=== PATIENT | male | born 1935 | race Caucasian/White ===

== ENCOUNTER 2017-03-03 08:56 | Emergency (ER) | payer MEDICARE ==
[2017-03-03 09:39] LABS: BASOPHILS 0.2 % (0-2); HEMATOCRIT 42.6 % (42.0-54.0); HEMOGLOBIN 12.9 g/dL (13.5-17.5); IMMATURE GRANULOCYTES 0.3 % (0-5); LYMPHOCYTES 14.1 % (15-50); MCH 21.7 pg (26.0-34.0); MCHC 30.3 g/dL (31.0-37.0); MCV 71.7 fL (80.0-100.0); MEAN PLATELET VOLUME 9.7 fL (7.4-10.4); MONOCYTES 7.2 % (2-11); NEUTROPHILS 77.2 % (40-80); PLATELET COUNT 109 10x3/uL (130-400); RBC 5.94 10x6/uL (4.20-6.10); RDW 16.8 % (11.5-14.5); WBC 9.9 10x3/uL (4.8-10.8)
[2017-03-03 09:56] LABS: ALBUMIN 3.5 g/dL (3.4-5.0); ALKALINE PHOSPHATASE 74 U/L (46-116); ALT (SGPT) 27 U/L (10-68); CALC OSMOLALITY 284 mosm/kg (275-300); CALCIUM 8.4 mg/dL (8.5-10.1); CHLORIDE - SERUM 102 mmol/L (98-107); GLUCOSE 176 mg/dL (74-106); PROTEIN - SERUM 7.5 g/dL (6.4-8.2); SODIUM 136 mmol/L (136-145); UREA NITROGEN 38 mg/dL (7-18); eGFR NON AFRICAN AMERICAN 20 mL/min (90-120)
[2017-03-03 10:06] LABS: CREATINE KINASE 335 UL (21-232); PRO BNP 10921 pg/mL (0-450)
[2017-03-03 10:45] LABS: CKMB 8.1 U/L (0.0-3.6)
[2017-03-03] MEDS ORDERED: NORVASC5 MG PO (13:07)
[2017-03-03] MEDS ORDERED: AZILECT1 MG PO (13:08)
[2017-03-03] MEDS ORDERED: FOLIC ACID1 MG PO (13:08)
[2017-03-03] MEDS ORDERED: NEURONTIN 300300 MG PO (13:08)
[2017-03-03] MEDS ORDERED: MYSOLINE 50 MG50 MG PO (13:09)
[2017-03-03] MEDS ORDERED: OMEPRAZOLE40 MG PO (13:09)
[2017-03-03] MEDS ORDERED: COUMADIN1 MG PO ×2 (13:10→13:11)
[2017-03-03] MEDS ORDERED: ZENPEP DR 3,001 EACH PO (13:10)
[2017-03-03] MEDS ORDERED: POTASSIUM99 M1 PO (13:11)
[2017-03-03] MEDS ORDERED: VITAMIN B650 MG PO (13:12)
[2017-03-03] MEDS ORDERED: PREDNISONE10 MG PO (13:13)
[2017-03-03] MEDS ORDERED: HUMALOG 30100 UNITS/ SC (13:13)
[2017-03-03] MEDS ORDERED: LANTUS INSULIN10 ML SC (13:14)
[2017-03-04 12:54] VITALS: BMI 29.0
== END 2017-03-03 11:37 | disposition other institution (70) ==
LOC: EDBD 08:56 → D.ER 08:56
PROVIDERS: Emergency Medicine
DX: J18.9 Pneumonia, unspecified organism (principal); I10 Essential (primary) hypertension; I50.9 Heart failure, unspecified; G20 Parkinson's disease; E11.9 Type 2 diabetes mellitus without complications; Z79.01 Long term (current) use of anticoagulants

== ENCOUNTER 2017-03-03 11:37 | Inpatient (IN) | payer MEDICARE ==
[~2017-03-03] VITALS: Ht 167.6 cm; Wt 76.5 kg
--- NOTE | ~2017-03-03 | CN ---
PATIENT NAME:BRAD LY MEDICAL RECORD: [id number] : 35 LOCATION:[id number] ADMIT DATE: 03/03/17 ACCOUNT: [id number] CONSULTING PHYSICIAN: THANIA SANON MD REFERRING PHYSICIAN: SUZANNE CHAPPELL DO DATE OF CONSULTATION: 03/05/2017 CONSULT REQUESTING PHYSICIAN: Suzanne Chappell DO REASON FOR CONSULTATION: Acute hypoxic respiratory failure, bilateral pneumonia, pulmonary edema, congestive heart failure, acute renal failure. HISTORY OF PRESENT ILLNESS: Mr. Ly is an 82-year-old gentleman who is visiting from [place]. The current patient who was not feeling well starting from home, but on arrival, the patient got worse, he has shortness of breath, he was coughing, he was wheezing. He also has some low-grade fever. On evaluation in the ER, the patient found out to be pneumonia as well as he was in [id number]-[id number]-lvlrnnq renal failure. Now, the patient denies any chest pain, but he is very dyspneic. He is on an oxymizer nasal cannula. REVIEW OF SYSTEMS: CONSTITUTIONAL: He has some low-grade fever. HEENT: Sinus congestion. RESPIRATORY: As in history of present illness. CARDIOVASCULAR: He has no chest pain. GASTROINTESTINAL: Negative. GENITOURINARY: Negative. Other review of the systems is negative. PAST MEDICAL HISTORY: 1. Congestive heart failure. 2. History of pancreatitis. 3. History of pulmonary embolism. 4. Diabetes mellitus type 2. 5. Neuropathy. 6. Chronic kidney disease. 7. Hypertension. 8. History of lymphoma of the liver 2 years ago. PAST SURGICAL HISTORY: Nonsignificant. ALLERGIES: There are no known drug allergies. PRESENT MEDICATIONS: On [employer] was reviewed. PERSONAL AND SOCIAL HISTORY: The patient is an ex-smoker. He is a nondrinker. FAMILY HISTORY: Noncontributory. PHYSICAL EXAMINATION: GENERAL: Now, the patient is lying comfortably in bed. He is not in respiratory distress. VITAL SIGNS: The blood pressure is 145/75, pulse is 95, respirations 17, temperature 98.1, SpO2 is 98% on 6 liters oxymizer. HEENT: Conjunctivae are pink. Sclerae are nonicteric. CONSULT REPORT [id number] BRAD LY NECK: Supple. There is elevated JVD. CHEST: Bilateral crackles, wheeze on forceful expiration. HEART: Rhythm regular, normal sound, no murmur. ABDOMEN: Soft, bowel sounds present. No hepatosplenomegaly. RECTAL: Deferred. EXTREMITIES: No cyanosis, no clubbing. There is 1+ pedal edema. SKIN: Warm with normal turgor. CENTRAL NERVOUS SYSTEM: The patient is awake and alert. There are no obvious cranial nerve abnormality. The gait was not tested. LABORATORY DATA: CBC on admission, the WBC was 13.3 and now down to 7.9, hemoglobin 10.2, hematocrit 33.1, the platelet count is 87. Chemistry: Sodium is 131, potassium is 4.3, BUN is 55, creatinine 3.7, glucose 319. Liver enzymes within normal range. The proBNP is 16,928. Troponin is 1.66. CK-MB is 12.4. ABG: The pH is 7.38, pCO2 of 36.7, the pO2 is 78, bicarbonate of 21.7. The lactic acid is 2.07. IMPRESSION: 1. Acute hypoxic respiratory failure which is multifactorial. A. Bilateral pneumonia. B. Pulmonary edema. C. Underlying chronic obstructive pulmonary disease, ex-smoker. 2. Acute myocardial infarction. 3. Pulmonary edema. 4. Mild metabolic acidosis with possible secondary to a poor perfusion and sepsis. 5. Congestive heart failure with elevated BNP, possible systolic dysfunction. 6. Gnkth-ms-pnrjvkj kidney disease. 7. Diabetes mellitus type 2. 8. History of pulmonary embolism. RECOMMENDATION: 1. Continue the Coumadin. 2. Discontinue the Zithromax, start him on Levaquin. Continue Rocephin to cover for more Gram-negative rods and atypicals. 3. Xopenex and ipratropium nebulizer. 4. Start him on diuresis. We will follow up a renal function. Discussed with Dr. Chappell. Discussed with Dr. Mejia. The critical care time is 45 minutes. TRANSINT:[id number] Voice Confirmation ID: [id number] DOCUMENT ID: [id number] THANIA SANON MD CC: SUZANNE CHAPPELL DO [id number] DICTATION DATE: 03/05/17 1308 RESIDENT CARE ASSISTANT: 03/05/[id number] ADM IN [place] [id number] [place] [address]
--- NOTE | 2017-03-03 13:04 | NUR ---
PT TO ROOM FROM ER ALERT AND ORIENTED FAMILY AT BEDSIDE WILL ADMIT
[2017-03-03] MEDS ORDERED: NORVASC5 MG PO (13:07)
[2017-03-03] MEDS ORDERED: NEURONTIN 300300 MG PO (13:08)
[2017-03-03] MEDS ORDERED: AZILECT1 MG PO (13:08)
[2017-03-03] MEDS ORDERED: FOLIC ACID1 MG PO (13:08)
[2017-03-03] MEDS ORDERED: OMEPRAZOLE40 MG PO (13:09)
[2017-03-03] MEDS ORDERED: MYSOLINE 50 MG50 MG PO (13:09)
[2017-03-03] MEDS ORDERED: COUMADIN1 MG PO ×2 (13:10→13:11)
[2017-03-03] MEDS ORDERED: ZENPEP DR 3,001 EACH PO (13:10)
[2017-03-03] MEDS ORDERED: POTASSIUM99 M1 PO (13:11)
[2017-03-03] MEDS ORDERED: VITAMIN B650 MG PO (13:12)
[2017-03-03] MEDS ORDERED: PREDNISONE10 MG PO (13:13)
[2017-03-03] MEDS ORDERED: HUMALOG 30100 UNITS/ SC (13:13)
[2017-03-03] MEDS ORDERED: LANTUS INSULIN10 ML SC (13:14)
[2017-03-03 13:15] VITALS: BP 126/64; BMI 29.0
--- NOTE | 2017-03-03 13:36 | NUR ---
PT AZITHROMYCIN IS INFUSING TO LEFT FA NO PROBLEMS. ADMISSION IS COMPLETE. ORDERED PT A DIABETIC LUNCH TRAY PT IS EATING NOW. FSBS IS 176. PT AND FAMILY MEMBER AT BEDSIDE. WILL CONT TO MONITOR
[2017-03-03 15:43] VITALS: BP 137/75
--- NOTE | 2017-03-03 18:04 | NUR ---
ORDER WAS PLACED FOR TELE. NO AVAILABLE BEDS ON TELE BOARD AT THE MOMENT PER WASTEWATER DESIGN ENGINEER.
--- NOTE | 2017-03-03 18:41 | NUR ---
PT PIV INFILTRATED. DC WITH CATH TIP INTACT. RESITED TO LEFT UPPER FA 20G X3 STICKS. SIGNED AND DATED DSNG. IV ABX INFUSING NO PROBLEMS.
[2017-03-03 18:42] LABS: BASOPHILS 0.1 % (0-2); EOSINOPHILS 0 % (0-7); HEMATOCRIT 35.9 % (42.0-54.0); HEMOGLOBIN 11.1 g/dL (13.5-17.5); IMMATURE GRANULOCYTES 0.3 % (0-5); LYMPHOCYTES 5.3 % (15-50); MCH 22.1 pg (26.0-34.0); MCHC 30.9 g/dL (31.0-37.0); MCV 71.5 fL (80.0-100.0); MEAN PLATELET VOLUME 9.9 fL (7.4-10.4); MONOCYTES 2.3 % (2-11); RBC 5.02 10x6/uL (4.20-6.10); RDW 16.7 % (11.5-14.5)
[2017-03-03 18:43] LABS: PLATELET COUNT 86 10x3/uL (130-400); WBC 13.3 10x3/uL (4.8-10.8)
[2017-03-03 19:23] LABS: ANION GAP 14.3 mmol/L (8-16); BILIRUBIN - TOTAL 0.43 mg/dL (0.2-1.3); CALCIUM 7.7 mg/dL (8.5-10.1); CARBON DIOXIDE 23.2 mmol/L (21.0-32.0); CREATININE - SERUM 3.4 mg/dL (0.6-1.3); POTASSIUM - SERUM 4.5 mmol/L (3.5-5.1)
[2017-03-03 19:26] LABS: INR 2.52 (0.85-1.17); PROTIME 27.3 SECONDS (11.6-15.0)
[2017-03-03 20:00] VITALS: BP 125/53
--- NOTE | 2017-03-03 21:08 | NUR ---
PT LYING IN BED, EYES CLOSED, RESPIRATIONS EVEN AND UNLABORED. PT EASILY ROUSABLE TO VERBAL STIMULI. DENIES ANY NEEDS. CONTINUE TO MONITOR CLOSELY. BED LOW, CALL LIGHT IN REACH, SIDE RAILS X 2, HOB 15 DEGREES.
--- NOTE | 2017-03-03 21:27 | NUR ---
I GAVE PT A VANILLA ICE CREAM FOR HS SNACK R/T HIS INSULIN ADMINISTRATION AND BLOOD GLUCOSE.
[2017-03-03 21:33] LABS: PLATELET ESTIMATE DECREASED
[2017-03-04 00:59] VITALS: BP 103/48
[2017-03-04 04:16] VITALS: BP 98/51
[2017-03-04 05:17] LABS: BASOPHILS 0 % (0-2); EOSINOPHILS 0 % (0-7); HEMATOCRIT 34.1 % (42.0-54.0); HEMOGLOBIN 10.7 g/dL (13.5-17.5); IMMATURE GRANULOCYTES 0.2 % (0-5); LYMPHOCYTES 5.7 % (15-50); MCH 22.2 pg (26.0-34.0); MCHC 31.4 g/dL (31.0-37.0); MCV 70.7 fL (80.0-100.0); MONOCYTES 3.7 % (2-11); NEUTROPHILS 90.4 % (40-80); PLATELET COUNT 89 10x3/uL (130-400); RBC 4.82 10x6/uL (4.20-6.10); RDW 16.7 % (11.5-14.5); WBC 10.5 10x3/uL (4.8-10.8)
[2017-03-04 05:36] LABS: INR 3.56 (0.85-1.17)
[2017-03-04 05:56] LABS: ALBUMIN 2.7 g/dL (3.4-5.0); ANION GAP 11.5 mmol/L (8-16); BILIRUBIN - TOTAL 0.31 mg/dL (0.2-1.3); CALCIUM 7.9 mg/dL (8.5-10.1); CARBON DIOXIDE 25.8 mmol/L (21.0-32.0); CREATININE - SERUM 3.7 mg/dL (0.6-1.3); MAGNESIUM - SERUM 1.8 mg/dL (1.8-2.4); PHOSPHOROUS 3.7 mg/dL (2.5-4.9); POTASSIUM - SERUM 4.3 mmol/L (3.5-5.1); PROTEIN - SERUM 6.2 g/dL (6.4-8.2)
--- NOTE | 2017-03-04 06:18 | NUR ---
PT LYING IN BED, EYES CLOSED RESPIRATIONS EVEN AND UNLABORED. PT EASILY ROUSABLE TO VERBAL STIMULI, DENIES ANY NEEDS. CONTINUE TO MONITOR CLOSELY. BED LOW, CALL LIGHT IN REACH, SIDE RAILS X 1, HOB 30 DEGREES.
--- NOTE | 2017-03-04 07:28 | NUR ---
AM ROUNDING- RECEIVED REPORT FROM HEAVY EQUIPMENT TECHNICIAN NURSE HARI MCCLURE. PTIS CURRENTLY SITTING UP IN BED ON BACK WITH EYES OPEN RESTING. ON MONITOR SHOWING SR, HR 84. ON 02 AT 3L VIA NC. IV SEEN TO LEFT UPPER ARM WITH NS RUNNING AT KVO (10CC). NO NEED AT CURRENT TIME. WILL CONTINUE TO MONITOR AND CONTINUE WITH PLAN OF CARE.
[2017-03-04 07:53] VITALS: BP 116/51
--- NOTE | 2017-03-04 07:54 | NUR ---
CALLED PHARMACY REGARDING PTS ORDERED POTASSIUM GLUCONATE TABLET BEING 99MG AND COMING IN 500MG FORM. MADI FROM PHARMACY STATES ITS AN EQUAL DOSE AND IS ACCURATE. WILL CONTINUE TO MONITOR.
--- NOTE | 2017-03-04 08:47 | NUR ---
IV FLUIDS STARTED AT 100CC ORDERED.
--- NOTE | 2017-03-04 09:31 | NUR ---
IV FLUIDS CHANGED TO 100CC ORDERED.
--- NOTE | 2017-03-04 11:11 | NUR ---
NOTIFIED KEISHA LERNER NP OF PTS BLOOD SUGAR ORDERED (440). NO NEW ORDERS RECEIVED.
[2017-03-04 11:38] VITALS: BP 117/48
[2017-03-04 12:54] VITALS: Ht 167.6 cm; Wt 76.5 kg
[2017-03-04 16:42] VITALS: BP 141/61
--- NOTE | 2017-03-04 17:20 | NUR ---
PT IS CURRENTLY LAYING IN BED ON BACK WITH EYES OPEN RESTING RECEIVING ULTRASOUND ON KIDNEYS ORDERED. NO NEED AT CURRENT TIME. WILL CONTINUE TO MONITOR.
[2017-03-04 18:25] LABS: ERYTHROCYTE SEDIMENTATION RATE 15 mm/hr (0-20)
[2017-03-04 19:00] VITALS: BP 134/71
--- NOTE | 2017-03-04 19:03 | NUR ---
DELMA MENDOZA CAME TO INFORM ME THAT PT IS HAVING CHEST PAIN AND SOB. WENT TO CHECK ON PT AND PT STATES HE IS HAVING TROUBLE BREATHING AND CHEST PAIN. I ASKED PT IF HIS CHEST PAIN IS WHEN HE TAKES A BREATH IN AND PT REPLIES "YES". PTS O2 SAT IS 89% ON 2L VIA NC. TURNED PTS O2 UP TO 3L VIA NC AND CALLED RESPIRATORY IN ROOM. RESPIRATORY IS NOW GIVING PT BREATHING TX. EKG DONE AND PLACED IN CHART. HR IS 113. 1902- CALLED KEISHA LERNER NP AND INFORMED HER OF THIS. NEW ORDERS RECEIVED. WILL RELAY THIS INFORMATION TO HARI MCCLURE (ACCOUNTANT CERTIFIED PUBLIC NURSE)
--- NOTE | 2017-03-04 19:10 | NUR ---
CHECKED ON PT. PTS O2 SAT IS NOW 85%. CALLED RESP IN ROOM. PT IS NOW 90% ON OXIMIZER AT 14L. HR IS 129. B/P IS 143/71. RESP STATES TO ORDER ABGS. JAGUAR PRUITT, CONTROL CHEMIST IS IN ROOM. JAGUAR ASKED PT TO DESCRIBE CHEST PAIN. PT STATES " IT ISN'T SHARP OR ANYTHING". JAGUAR ASKED PT IF IT IS WHEN PT TAKES A BREATH IN AND PT REPLIED "YES". JAGUAR ASKED PT IF CHEST PAIN RADIATES TO ARMS OR ANYTHING LIKE THAT AND PT REPLIED "NO". WILL CONTINUE TO MONITOR.
--- NOTE | 2017-03-04 19:26 | NUR ---
CALLED KEISHA LERNER NP TO INFORM HER OF PTS BLODO TINGED SPUTUM, HX OF PE'S, AND PT BEING ON OXIMIZER AT 14L NOW. INFORMED KEISHA LERNER NP OF PTS INR (3.56). NO NEW ORDERES RECEIVED. WILL RELAY THIS INFORMATION TO DATA MODELER NURSE HARI MCCLURE AND CONTINUE TO MONITOR.
--- NOTE | 2017-03-04 20:54 | NUR ---
NURSE ROUNDS 20:00 - PT SITTING UP IN BED, AWAKE, ALERT, ORIENTED, FAMILY AND FRIENDS AT BEDSIDE. PT DENIES ANY ACUTE CHEST PAIN AT THIS TIME, STATING THAT IT WAS INCREASINGLY PAINFUL WITH INSPIRATIONS, BUT HAS IMPROVED SINCE HAVING AN UPDRAFT AND INCREASING HIS O2 TO 14LPM VIA OXYMIZER. DENIES ANY NEEDS. CONTINUE TO MONITOR CLOSELY.
[2017-03-04 21:52] LABS: CKMB 6.3 U/L (0.0-3.6); CREATINE KINASE 215 UL (21-232)
[2017-03-04 21:53] LABS: TROPONIN-I 0.106 ng/mL (0.000-0.060)
[2017-03-05] VITALS (18 sets, daily range): BP systolic 137–164; BP diastolic 64–88
--- NOTE | 2017-03-05 03:50 | NUR ---
FSBS NOW 129 - PT STATES HE IS FEELING BETTER. I DID GIVE PT A SNACK OF DAVE CRACKERS AND VANILLA WAFERS WITH MILK SO THAT HIS GLUCOSE DOES NOT BOTTOM OUT. PT DENIES ANY ACUTE NEEDS. CONTINUE TO MONITOR CLOSELY.
[2017-03-05 04:05] LABS: BASOPHILS 0 % (0-2); EOSINOPHILS 0 % (0-7); HEMATOCRIT 33.1 % (42.0-54.0); HEMOGLOBIN 10.2 g/dL (13.5-17.5); IMMATURE GRANULOCYTES 0.4 % (0-5); LYMPHOCYTES 8.5 % (15-50); MCH 21.9 pg (26.0-34.0); MCHC 30.8 g/dL (31.0-37.0); MONOCYTES 7.1 % (2-11); PLATELET COUNT 87 10x3/uL (130-400); RBC 4.66 10x6/uL (4.20-6.10); RDW 17.1 % (11.5-14.5); WBC 7.9 10x3/uL (4.8-10.8)
[2017-03-05 04:14] LABS: INR 3.1 (0.85-1.17); PROTIME 32.2 SECONDS (11.6-15.0)
[2017-03-05 04:38] LABS: ALBUMIN 2.7 g/dL (3.4-5.0); ALKALINE PHOSPHATASE 51 U/L (46-116); ALT (SGPT) 24 U/L (10-68); BILIRUBIN - TOTAL 0.24 mg/dL (0.2-1.3); CALCIUM 7.9 mg/dL (8.5-10.1); CARBON DIOXIDE 26.3 mmol/L (21.0-32.0); CHLORIDE - SERUM 104 mmol/L (98-107); CREATINE KINASE 216 UL (21-232); CREATININE - SERUM 3.4 mg/dL (0.6-1.3); POTASSIUM - SERUM 3.9 mmol/L (3.5-5.1); PROTEIN - SERUM 6.4 g/dL (6.4-8.2); SODIUM 139 mmol/L (136-145); UREA NITROGEN 62 mg/dL (7-18); eGFR NON AFRICAN AMERICAN 18 mL/min (90-120)
[2017-03-05 04:50] LABS: CALC OSMOLALITY 298 mosm/kg (275-300); GLUCOSE 145 mg/dL (74-106)
[2017-03-05 04:51] LABS: TROPONIN-I 1.915 ng/mL (0.000-0.060)
--- NOTE | 2017-03-05 05:31 | NUR ---
CARDIAC CONSULTED ORDERED R/T PTS ELEVATED TROPONIN. PT DENIES ANY ACTIVE CHEST PAIN, STATES HE IS STILL EXPERIENCING EXERTIONAL DYSPNEA, BUT OTHERWISE STABLE. WILL CONTINUE TO MONITOR CLOSELY.
--- NOTE | 2017-03-05 07:39 | NUR ---
AM ROUNDING- RECEIVED REPORT FROM QUARRYING SPECIALIST NURSE HARI MCCLURE. PT IS CURRENTLY LAYING IN BED ON BACK WITH EYES CLOSED RESTING. ON MONITOR SHOWING SR, HR 91. ON 02 VIA OXIMIZER AT 14L. IV SEEN TO LEFT UPPER ARM WITH NS RUNNING AT 100CC. CARDIAC CONSULTED PER HARI MCCLURE FOR ELEVATED TROPONIN AT 1.915. WILL AWAIT KEISHA LERNER NP TO MAKE ROUNDS AND INFORM HER OF THIS. WILL CONTINUE TO MONITOR AND CONTINUE WITH PLAN OF CARE.
--- NOTE | 2017-03-05 07:52 | NUR ---
ANNE LERNER NP TO INFORM HER OF PTS TROPONIN LEVEL THIS AM. WILL AWAIT CALLBACK AND CONTINUE TO MONITOR.
--- NOTE | 2017-03-05 08:10 | NUR ---
RECEIVED CALLBACK FROM KEISHA LERNER NP. INFORMED HER OF PTS TROPONIN LEVEL (1.915). KEISHA LERNER NP STATES TO CONSULT CARDIOLOGY. I STATED THAT HARI MCCLURE HAS ALREADY PUT A CONSULT IN. KEISHA LERNER NP GAVE NO FURTHER ORDERS. WILL CONTINUE TO MONITOR AND CONTINUE WITH PLAN OF CARE.
--- NOTE | 2017-03-05 09:35 | NUR ---
PT FAMILY OUT IN HALLWAY SCREAMING FOR HELP. WENT TO PT ROOM, PT IS IN THE BATHROOM C/O SOB AND STATES "I NEED MORE AIR". PT O2 SAT IS 81% ON 9L OXIMIZER. TURNED PT O2 UP GRADUALLY TO 14L WHAT PRIMARY NURSE STATES PT HAS BEEN ON. PT SATS UP TO 91%. PT IS FINISHING GOING TO THE BATHROOM STATES HE FEELS BETTER. MICHELLE PRIMARY NURSE IS WITH PT.
--- NOTE | 2017-03-05 09:42 | NUR ---
WHILE DOING SHIFT ASSESSMENT AND MORNING MEDICAITONS, I ASKED PT IF HE WAS HAVING ANY TYPE OF CHEST PAIN AND PT REPLIED "NO". WILL CONTINUE TO MONITOR.
--- NOTE | 2017-03-05 09:46 | NUR ---
PT FAMILY MEMBERS SCREAMING IN HALLWAY AGAIN FOR A NURSE TO PT ROOM. UPON ENTERING THE ROOM PT FACE IS BLUE AND HE IS GASPING HARD FOR AIR. RR IS 30, O2 SAT IS 67% RAPID RESPONSE CALLED. MICHELLE NORIEGA PRIMARY NURSE IN THE ROOM WELL. TURNED PT UP TO 15L OXIMIZER. RESPIRATORY HERE AND TURNED PT UP TO FLUSH ABGS WERE DRAWN. KEISHA LERNER IS ALSO PRESENT. PT BP IS 188/89 O2 SATS GRADUALLY RISING. EKG WAS DONE.CARDIAC ENZYMES DRAWN PT TO POSSIBLY TRANSFER TO THE ICU PENDING OPEN BED. RESPIRATORY STILL IN ROOM ADMINISTERING BREATHING TX PT CURRENT O2 SAT IS 95% ON FLUSH OXIMIZER.
--- NOTE | 2017-03-05 10:05 | NUR ---
0946- CALLED INTO PTS ROOM BY HARI RODRIGUEZ FOR PT HAVING RESP DISTRESS AND PTS O2 SAT BEING 67% ON OXIMIZER AT 14L. TURNED PTS OXIMIZER UP TO FLUSH (15L). HARI RODRIGUEZ HAD RESP PAGED TO ROOM. VITAL SIGNS TAKEN: B/P- 188/89, HR- 121, RESP- 35, O2 SAT NOW 85%. RAPID RESPONSE CALLED AT THIS TIME. RAPID RESPONSE TEAM IN ROOM ALONG WITH RESP. PT DENIES ANY CHEST PAIN WITH RESP DISTRESS. 0950- ABGS DONE BY RESP. 0952- EKG DONE BY HARI RODRIGUEZ AND RESP. 0953- KEISHA LERNER NP IN ROOM ASSESSING PT, O2 SAT IS NOW 90% ON PULSE OXIMETER. HR 117. 0955- CHEST XRAY BEING DONE NOW. 1000- VITAL SIGNS TAKEN AGAIN: B/P- 166/83, HR-116, 02 SAT- 93% (ON 15L VIA OXIMIZER). RESP IN ROOM DOING BREATHING TX ORDERED BY KEISHA LERNER NP. JIA MARSCALCULATION REVIEWER AWARE. POSSIBLY AWAITING BED IN ICU TO TRANSFER PT. INSTRUCTED PT TO USE CALL LIGHT TO ALERT STAFF MEMBERS IF HAVING ANY FURTHER RESP DISTRESS, PT AGREED. WILL CONTINUE TO MONITOR.
--- NOTE | 2017-03-05 10:17 | NUR ---
UPON CHECKING ON PT I ASKED PT IF HE IS FEELING ANY BETTER (02 SAT IS NOW 97% ON OXIMIZER AT 15L), PT REPLIED "YES I FEEL ALOT BETTER". PT DENIES ANY CHEST PAIN AT CURRENT TIME. WILL CONTINUE TO MONITOR.
[2017-03-05 10:30] LABS: CKMB 12.4 U/L (0.0-3.6); CREATINE KINASE 214 UL (21-232)
[2017-03-05 10:32] LABS: TROPONIN-I 1.663 ng/mL (0.000-0.060)
--- NOTE | 2017-03-05 10:42 | NUR ---
CHECKED ON PT, PT DENIES ANY CHEST PAIN AT CURRENT TIME AND STATES HE FEELS A LITTLE BETTER WITH IS BREATHING FROM BEFORE. O2 SAT IS 96% ON 15L VIA OXIMIZER. B/P IS 143/70, HR IS 102. FAMILY MEMBERS ARE AT BEDSIDE. INSTRUCTED PT TO USE CALL LIGHT IF HAVING ANY DISTRESS OR NEEDING ASSISTANCE FROM STAFF MEMBERS, PT AGREED. WILL CONTINUE TO MONITOR.
--- NOTE | 2017-03-05 11:37 | NUR ---
DR. STANLEY IN ROOM. INFORMED HIM OF HAVING TO CALL RAPID ON PT EALIER ON SHIFT. DR. STANLEY STATES TO STOP IV FLUIDS. WILL DO ORDERED AND CONTINUE TO MONITOR.
--- NOTE | 2017-03-05 11:57 | NUR ---
DR. CHAPPELL GAVE VERBAL ORDERS TO TRANFER PT TO ICU. ICU NURSE CALLED TO SAY THEY ARE READY FOR PT. WILL CALL REPORT AND TRANSFER PT ORDERED.
--- NOTE | 2017-03-05 12:06 | NUR ---
CALLED REPORT TO HARI GIVENS IN ICU. WILL TRANSFER PT ORDERED AND CONTINUE TO MONITOR.
--- NOTE | 2017-03-05 12:44 | NUR ---
TRANSFERRED PT TO ICU ORDERED ON O2 AT 15L VIA OXIMIZER. FAMILY MEMBERS TOOK HOME PTS BELONGINGS. PT HAS CELLPHONE AND HEARING AIDS AT BEDSIDE. RAPID RESPONSE PAPERWORK GIVEN TO ICU NURSE WITH EKG.
--- NOTE | 2017-03-05 13:04 | NUR ---
REC'D PT FROM MED 2 FLOOR. PT IS A&O X4. SHIFT ASSESSMENT COMPLETED. RR ARE NONLABORED BUT PT EASILY GETS SOB UPON EXERTION. OXYMIZER IN PLACE @15L WITH 02 SAT OF 93% TELEMETRY IN PLACE RUNNING 99 SR. PTS ABDOMEN SLIGHTLY DISTENDED AND TIGHT BUT DENIES FEELING CONSTIPATED LAST BM 2 DAYS AGO. BS ACTIVE X4. PT IS COUGHING UP SOME THICK PHELGM, SCANT BLOOD NOTED. PT HAS A L.UPPER ARM PIV SL, PATENT WITH DRSG CDI AND SWAB CAPS IN USE. PT DENIES ANY CURRENT PAIN OR NEEDS, PROVIDED WITH URINAL AT BEDSIDE. CL IN REACH, BED IN LOWEST, SIDE RAILS X2. WILL CTM.
--- NOTE | 2017-03-05 13:43 | NUR ---
CALLED [facility] TO TRY AND OBTAIN MEDICATION RECORD. LEFT VOICEMAIL WITH PTS PCP AND WILL WAIT FOR CALL BACK. PT RESTING QUIETLY IN BED RR NONLABORED TAPERED OXYMIZER DOWN TO 13L PULSE OX WAS UP TO 98% WILL CONTINUE TO MONITER. PT DENIES ANY CURRENT NEEDS AT THIS TIME.
--- NOTE | 2017-03-05 15:44 | NUR ---
URINE SPECIMEN COLLECTED AND SENT TO LAB. PT RESTING QUIETLY IN BED RR NONLABORED WITH OXYMIZER @10L IN PLACE. PT DENIES ANY CURRENT PAIN OR NEEDS AT THIS TIME. CL IN REACH, BED IN LOWEST, SIDE RAILS X2. WILL CTM.
--- NOTE | 2017-03-05 15:46 | NUR ---
Patient Name: BRAD CASANOVA Admission Status: Elective Accout number: [id number] Admission Date: 03-03-2017 : 1935 Admission Diagnosis:SHORTNESS OF BREATH Attending: SALAS Current LOS: 2 Anticipated DC Date: Planned Disposition: Home Primary Insurance: OUT OF STATE [facility] PF Discharge Planning Comments: * Is the patient Alert and Oriented? Yes 0 * How many steps to enter\exit or inside your home? 9 0 * PCP DR. SELF, [facility], [place], [place] 0 * Pharmacy [facility], [place], [place] 0 * Preadmission Environment Home with Family 0 * ADLs Independent 0 * Equipment Bedside Commode Cane Glucometer Rolling Walker Walker 0 * Other Equipment NO LOCAL MEDICAL EQUIPMENT PROVIDER PREFERENCE 0 * List name and contact numbers for known caregivers / representatives who currently or will assist patient after discharge: DANIELLA CHAKRABORTY, SPOUSE, 0 * Community resources currently utilized None 0 * Please name any agencies selected above. NONE 0 * Additional services required to return to the preadmission environment? No 0 * Can the patient safely return to the preadmission environment? Yes 0 * Has this patient been hospitalized within the prior 30 days at any hospital? No [address] CHAPPELL WHO REQUESTED CM ASSISTANCE IN OBTAINING LABS REGARDING KIDNEY FUNCTIONING FROM PT'S PRIMARY CARE DOCTOR. CM MET WITH PT IN ROOM TO DISCUSS DISCHARGE PLANNING AND NEEDS. PT REPORTS LIVING AT HOME INDEPENDENTLY WITH SPOUSE. PT REPORTS HAVING ALL NEEDED MEDICAL EQUIPMENT FROM PREVIOUS ILLNESSES AT HOME. PT DOES USE HIS GLUCOMETER BUT NO OTHER MEDICAL EQUIPMENT ON REGULAR BASIS. PT HAS NO OUTSIDE SERVICES ASSISTING IN THE HOME. CM DISCUSSED AVAILABILITY OF HOME HEALTH, REHAB SERVICES AND MEDICAL EQUIPMENT. PT DENIES DISCHARGE NEEDS AT THIS TIME, HOPES TO DISCHARGE AND CONTINUE HIS VACATION IN [place] WITH HIS SPOUSE AT DISCHARGE. PT PROVIDED PRIMARY CARE INFORMATION, SIGNED RELEASE OF INFORMATION. CM CALLED FOR DR. SELF AT [facility], , SPOKE TO WELDING MACHINE SETTER PREETI WHO PROVIDED FAX NUMBER FOR MEDICAL RECORDS REQUEST. CM FAXED REQUEST/RELEASE TO [phone]. CM PROVIDED ICU FAX NUMBER WITH REQUEST FOR RECORDS TO BE FAXED THERE. CM TO CONTINUE TO FOLLOW AND ASSIST IF NEEDED. Hydraulic And Plumbing Installer: Mani Garcia
[2017-03-05 16:09] LABS: CREATININE - URINE 18.9 mg/dL (30-125); PRO/CRE RATIO URINE 2.3 mg/g; PROTEIN - URINE 42.9 mg/dL (0.0-11.9)
--- NOTE | 2017-03-05 16:31 | NUR ---
FAMILY AT BEDSIDE TO VISIT. FSBS 372. PT REC'D 24 UNITS OF INSULIN PER SS. PROVIDED PT WITH FRESH ICE WATER REQUESTED AND PASSED DINNER TRAY. PT DENIES ANY CURRENT PAIN OR FURTHER NEEDS AT THIS TIME. CL IN REACH, BED IN LOWEST, SIDE RAILS X2. WILL CPOC.
[2017-03-05 17:45] LABS: APPEARANCE CLEAR (CLEAR); BILIRUBIN NEGATIVE (NEGATIVE); COLOR YELLOW (YELLOW); GLUCOSE 250 mg/dL (NEGATIVE); KETONE NEGATIVE (NEGATIVE); LEUKOCYTE ESTERASE NEGATIVE (NEGATIVE); NITRITE NEGATIVE (NEGATIVE); PROTEIN TRACE mg/dL (NEGATIVE); UROBILINOGEN NORMAL (NORMAL)
--- NOTE | 2017-03-05 17:53 | NUR ---
PT RESTING QUIETLY IN BED. RR NONLABORED WITH OXYMIZER @10L IN PLACE. IVPB INFUSING VIA L.UPPER ARM PIV SITE. PT DENIES ANY CURRENT PAIN OR NEEDS. CL IN REACH, BED IN LOWEST, SIDE RAILS X2. WILL CTM.
--- NOTE | 2017-03-05 19:36 | NUR ---
REPORT RECIEVED. ASSESSMENT COMPLETE PER FLOW SHEET. VSS. C/O OF CRAMPING PAIN IN L FOOT. ELEVATED ON PILLOW FOR COMFORT. DENIES FURTHER NEEDS. WILL CONTINUE TO MONITOR.
--- NOTE | 2017-03-05 21:10 | NUR ---
NO VISITORS AT THIS TIME, HS MEDS GIVEN
--- NOTE | 2017-03-05 23:17 | NUR ---
REASSESSMENT COMPLETE PER FLOW SHEET. VSS. NO NEW CHANGES. WILL CONTINUE TO MONITOR.
[2017-03-06] VITALS (24 sets, daily range): BP systolic 137–166; BP diastolic 69–93
--- NOTE | 2017-03-06 01:00 | NUR ---
500 C/Y UOP NOTED AT THIS TIME
--- NOTE | 2017-03-06 03:21 | NUR ---
REASSESSMENT COMPELTE PER FLOW SHEET. VSS. NO NEW CHANGES. WILL CONTINUE TO MONITOR.
[2017-03-06 04:23] LABS: BASOPHILS 0.2 % (0-2); EOSINOPHILS 0 % (0-7); HEMOGLOBIN 10.6 g/dL (13.5-17.5); IMMATURE GRANULOCYTES 0.6 % (0-5); LYMPHOCYTES 8.9 % (15-50); MCH 21.5 pg (26.0-34.0); MCHC 30.3 g/dL (31.0-37.0); MCV 70.9 fL (80.0-100.0); MONOCYTES 5.2 % (2-11); NEUTROPHILS 85.1 % (40-80); PLATELET COUNT 91 10x3/uL (130-400); RBC 4.94 10x6/uL (4.20-6.10); RDW 17.3 % (11.5-14.5); WBC 6.3 10x3/uL (4.8-10.8)
[2017-03-06 04:30] LABS: INR 2.42 (0.85-1.17); PROTIME 26.5 SECONDS (11.6-15.0)
[2017-03-06 04:45] LABS: ALBUMIN 2.6 g/dL (3.4-5.0); ANION GAP 12.8 mmol/L (8-16); BILIRUBIN - TOTAL 0.49 mg/dL (0.2-1.3); CALCIUM 7.8 mg/dL (8.5-10.1); CARBON DIOXIDE 26.6 mmol/L (21.0-32.0); MAGNESIUM - SERUM 1.9 mg/dL (1.8-2.4); POTASSIUM - SERUM 4.4 mmol/L (3.5-5.1); PROTEIN - SERUM 6.4 g/dL (6.4-8.2)
--- NOTE | 2017-03-06 06:18 | EC ---
PATIENT:BRAD CASANOVA DATE OF SERVICE: 03/03/17 SEX: M MEDICAL RECORD: [id number] DATE OF : 35 LOCATION:[facility] AGE OF PATIENT: 82 ADMISSION DATE: 03/03/17 REFERRING PHYSICIAN: INTERPRETING PHYSICIAN: ABRAHAN CHOWDHURY M.D. ECHOCARDIOGRAM REPORT ECHO CHARGES 4 ECHO COMPLETE CLINICAL DIAGNOSIS: ELEVATED BNP ECHOCARDIOGRAPHIC MEASUREMENTS (adult normal given) AC root (d.<3.7cm) 3.7 LV Septum d (<1.2 cm> 1.1 Valve Excursion 1.8 LV Septum (systole) 1.6 Left Atria (s.<4.0cm> 3.6 LVPW d(<1.2cm) 1.5 RV (d.<2.3cm) 4.8 LVPW (sytole) 1.9 LV diastole(<5.6CM) 7.1 MV E-F(>70mm/sec) LV systole 5.7 LVOT Diameter 1.1 MV exc.(>10mm) 1.8 Est.ejection fraction (50-75%) Pericardial Effusion N DOPPLER: LVIT A 108 E 119 LA RVSP 18 LVOT 110 AOP1/2T Asc. Ao 241 RVOT RA PA AV Gradient Peak 23.31 AV Mean 13.71 AV Area 1.0 MV Gradient Peak 6.63 MV Mean 3.03 MV Area COMMENTS: Regulator Tester: Aime OSHEA Lens Cutter:Aime Chowdhury TAPE# PACS DATE OF SERVICE: 03/04/2017 REFERRING PHYSICIAN: Mark Panda DO. INDICATION: Elevated BNP. DESCRIPTION: Left ventricle is moderately dilated. There is mild LV dysfunction noted. Estimated ejection fraction is in the order of 45%. Mitral valve is structurally normal. There is mild regurgitation seen. Left atrium is normal in size. The aortic valve is trileaflet. The leaflets are slightly ECHOCARDIOGRAM REPORT [id number] BRAD CASANOVA thickened. Peak gradient across the valve is 20 mmHg. There is no insufficiency seen. Right ventricle is mildly dilated. Tricuspid valve is structurally normal. There is mild tricuspid regurgitation seen. Right atrium is normal size. There is no pericardial effusion seen. IMPRESSION: 1. Moderately dilated left ventricle with mild left ventricular dysfunction with ejection fraction of 45%. 2. Mild mitral regurgitation. 3. Mild aortic stenosis. 4. Mild tricuspid regurgitation. TRANSINT:[id number] Voice Confirmation ID: [id number] DOCUMENT ID: [id number] ABRAHAN CHOWDHURY M.D. at 0618 CC: [id number] DICTATION DATE: 03/05/17 0726 COAGULATING DRYING SUPERVISOR: 03/05/17 1059 ADM IN [place] [id number] [place] [id number]
--- NOTE | 2017-03-06 07:00 | NUR ---
REPORT RECEIVED. ASSESSMENT COMPLETED. PATIENT DENIES NEEDS AT THIS TIME.
--- NOTE | 2017-03-06 09:54 | NUR ---
Nutrition follow-up: Diet: ADA consistent CHO PO intake 100% of most meals Labs: Glucose running high +BM Wt: 179# RDN following.
[2017-03-06] MEDS ORDERED: LIPITOR20 MG PO (12:27)
[2017-03-06] MEDS ORDERED: VITAMIN B-1000 MCG/M SQ (12:28)
[2017-03-06] MEDS ORDERED: LASIX40 MG PO (12:30)
[2017-03-06] MEDS ORDERED: LANTUS SOL100 UNIT/1 SQ (12:40)
[2017-03-06] MEDS ORDERED: TOPROL XL50 MG PO (12:41)
[2017-03-06] MEDS ORDERED: KLOR-CON 1010 MEQ PO (12:43)
[2017-03-06] MEDS ORDERED: MYSOLINE 50 MG50 MG PO (12:44)
[2017-03-06] MEDS ORDERED: ZENPEP DR 10,01 EACH PO ×2 (12:47→12:48)
--- NOTE | 2017-03-06 12:54 | NUR ---
RECEIVED MED LIST FROM [facility] IN [place], [place]. UPDATED PATIENTS HOME MEDS, CALL WAS PLACED TO DR CHAPPELL TO LET HIM KNOW THAT THE CORRECT MEDS WERE IN THE SYSTEM AND THAT MOST OF THE ORIGINAL MEDS WERE WRONG BY DOSE OR OMISSION FROM LIST. HE STATED HE WOULD LOOK AT IT.
--- NOTE | 2017-03-06 19:00 | NUR ---
REPORT RECIEVED, SHIFT ASSESSMENT COMPLETE, PT IS ALERT AND ORIENTED, ON 2L NC WITH 98% O2 SAT. LUNGS CLEAR IN B/L UPPER LOBES, DIMINISHED IN B/L LOWER LOBES, S1S2, CM-NSR, PATENT LEFT FA PIV WITH NS INFUSING VIA PUMP, ABDOMEN IS SOFT AND ROUDN WITH ACTIVE BS, URINAL AT BEDSIDE, ALL PPP, VSS, CALL LIGHT IN REACH
--- NOTE | 2017-03-06 21:00 | NUR ---
NO VISITORS AT THIS TIME, PT DENIES ANY WANTS OR NEEDS, WILL CON'T TO MONITOR
--- NOTE | 2017-03-06 22:10 | NUR ---
PT BLOOD SUGAR 47 GIVEN GRAPES, PEANUT BUTTER AND CRACKERS AND JUICE. ATE 100% DENIES FURTHER NEEDS. WILL REASSESS.
--- NOTE | 2017-03-06 23:20 | NUR ---
REASSESSMENT COMPLET EPER FLOW SHEET. VSS. NO NEW CHANGES. WILL CONTNIUE TO MONITOR.
[2017-03-07] VITALS (9 sets, daily range): BP systolic 137–169; BP diastolic 62–92
[2017-03-07 05:01] LABS: BASOPHILS 0.2 % (0-2); EOSINOPHILS 0.2 % (0-7); HEMATOCRIT 36.3 % (42.0-54.0); IMMATURE GRANULOCYTES 1.7 % (0-5); MCH 21.6 pg (26.0-34.0); MCHC 30.3 g/dL (31.0-37.0); MCV 71.3 fL (80.0-100.0); MEAN PLATELET VOLUME 9.8 fL (7.4-10.4); MONOCYTES 5.5 % (2-11); NEUTROPHILS 79.4 % (40-80); PLATELET COUNT 94 10x3/uL (130-400); RBC 5.09 10x6/uL (4.20-6.10); WBC 5.3 10x3/uL (4.8-10.8)
[2017-03-07 05:13] LABS: INR 1.77 (0.85-1.17); PROTIME 20.6 SECONDS (11.6-15.0)
[2017-03-07 05:23] LABS: ALBUMIN 2.6 g/dL (3.4-5.0); ANION GAP 14.1 mmol/L (8-16); BILIRUBIN - TOTAL 0.46 mg/dL (0.2-1.3); CALCIUM 8.5 mg/dL (8.5-10.1); CARBON DIOXIDE 26.6 mmol/L (21.0-32.0); CREATININE - SERUM 2.9 mg/dL (0.6-1.3); POTASSIUM - SERUM 4.7 mmol/L (3.5-5.1); PROTEIN - SERUM 6.5 g/dL (6.4-8.2)
--- NOTE | 2017-03-07 16:05 | NUR ---
INFORMED DR. KINSEY PT HAS QUESTIONS ABOUT PLAN OF CARE.
--- NOTE | 2017-03-07 18:25 | NUR ---
FAMILY AT BEDSIDE. INFORMED OF PENDING TX.
--- NOTE | 2017-03-07 19:20 | NUR ---
PT TO TRANSFER TO ROOM 2108. REPORT GIVEN TO LISA.
--- NOTE | 2017-03-07 19:41 | NUR ---
PT TRANSFERED TO ROOM 2108 VIA WHEELCHAIR WITH ALL PERSONAL BELONGINGS.
--- NOTE | 2017-03-07 19:46 | NUR ---
REC FROM ICU VIA WC. ABULATED TO BED WITH STEADY GAIT. DENIES PAIN OR ANY NEEDS. ALERT/ORIENTED X 4. IV IN L AC INTACT SL. ORIENTED TO ROOM AND CALL LIGHT
--- NOTE | 2017-03-07 20:00 | NUR ---
REC FROM ICU VIA WC. AMBULATED TO BED WITH STEADY GAIT. ALERT/ORIENTED X4. DENIES PAIN OR ANY NEEDS. IV IN L AC INTACT SL. ORIENTED TO ROOM AND CALL LIGHT.
--- NOTE | 2017-03-07 22:15 | NUR ---
ADMIN SCHED MEDS. CHECKED BS AT 268. ONLY ACCEPTED 6 UNITS OF HUMALOG INSTEAD OF 16 UNITS PER SLIDING SCALE. STATING "IT WILL MAKE MY BLOOD SUGAR GO TO LOW". WILL RECHECK IT IN A FEW HOURS.
[2017-03-08] VITALS: BP 136/80
--- NOTE | 2017-03-08 00:30 | NUR ---
INFORMED OF BEING NPO AFTER MIDNIGHT FOR US OF ABD TODAY.
--- NOTE | 2017-03-08 00:45 | NUR ---
CHECKED BS WITH GLUCOMETER AT 225. WOULD ONLY ACCEPT 6 UNITS HUMALOG. EXPRESSED CONCERN ABOUT HIS BLOOD SUGAR DROPPING TO LOW.
[2017-03-08 04:00] VITALS: BP 130/68
--- NOTE | 2017-03-08 05:30 | NUR ---
CHECKED BS AT 422. WOULD ONLY ACCEPT 15 UNITS HUMALOG.
[2017-03-08 06:17] LABS: BASOPHILS 0.3 % (0-2); EOSINOPHILS 0.2 % (0-7); HEMATOCRIT 39.2 % (42.0-54.0); HEMOGLOBIN 11.9 g/dL (13.5-17.5); LYMPHOCYTES 14.1 % (15-50); MCH 21.5 pg (26.0-34.0); MCHC 30.4 g/dL (31.0-37.0); MCV 70.8 fL (80.0-100.0); MEAN PLATELET VOLUME 10.3 fL (7.4-10.4); MONOCYTES 3.6 % (2-11); NEUTROPHILS 79.8 % (40-80); RBC 5.54 10x6/uL (4.20-6.10); RDW 16.7 % (11.5-14.5); WBC 6.1 10x3/uL (4.8-10.8)
[2017-03-08 06:18] LABS: PLATELET COUNT 117 10x3/uL (130-400)
[2017-03-08 06:30] LABS: PROTIME 16.8 SECONDS (11.6-15.0)
[2017-03-08 06:31] LABS: INR 1.38 (0.85-1.17)
[2017-03-08 06:35] LABS: ANION GAP 12.5 mmol/L (8-16); CALCIUM 8.8 mg/dL (8.5-10.1); CARBON DIOXIDE 28.1 mmol/L (21.0-32.0); MAGNESIUM - SERUM 1.9 mg/dL (1.8-2.4); PHOSPHOROUS 4.9 mg/dL (2.5-4.9); POTASSIUM - SERUM 4.6 mmol/L (3.5-5.1)
--- NOTE | 2017-03-08 08:19 | NUR ---
AM ROUNDS - PT IS AWAKE AND ALERT IN BED ON BACK. PT IS ON RA. LEFT AC, SL. NO OTHER NEEDS AT THIS TIME. WILL CONTINUE TO MONITOR
[2017-03-08 08:26] VITALS: BP 127/66
[2017-03-08 11:58] VITALS: BP 139/74
[2017-03-08 15:53] VITALS: BP 161/79
[2017-03-08] MEDS ORDERED: LEVAQUIN250 MG PO (15:58)
[2017-03-08] MEDS ORDERED: ASPIRIN81 MG PO (15:58)
--- NOTE | 2017-03-08 19:54 | NUR ---
DISCHARGE INSTRUCTIONS GIVEN WITH VERBALIZED UNDERSTANDING, IV DC'D, FAMILY AT BEDSIDE
--- NOTE | 2017-03-08 20:01 | NUR ---
DISCHARGED TO PO VIA WHEELCHAIR ACCOMPANIED BY FAMILY AND BULK FLUIDS HANDLER
--- NOTE | 2017-03-09 15:46 | DS ---
PATIENT:BRAD CASANOVA :35 MEDICAL RECORD: [id number] DISCHARGE SUMMARY ADMISSION DATE: 03/03/17 DISCHARGE DATE: 03/08/17 DATE OF ADMISSION: 03/03/2017 DATE OF DISCHARGE: 03/08/2017 ADMITTING DIAGNOSES: Bilateral pneumonia, hypertension, neuropathy, type 2 diabetes, history of lymphoma, history of tobacco use, chronic pancreatitis, and history of alcohol abuse. DISCHARGE DIAGNOSES: Pneumonia, respiratory failure, improved; pulmonary edema, improved; acute myocardial infarction, history of alcohol abuse, chronic pancreatitis, congestive heart failure, improved; type 2 diabetes, neuropathy, chronic kidney disease, and hypertension. CONSULTING PHYSICIAN: Dr. Brooks, Dr. Mejia and Dr. Diego. BRIEF HISTORY AND HOSPITAL COURSE: This is a nice gentleman, 82 years old, who looks much younger than his stated age and is visiting from [place]. He is originally from the [facility]. He has family here in the area. He started with chest pain, palpitations, fevers, ____ does have a cold, has been a previous smoker ____, presents to the Emergency and was found to have a pretty right lower lobe pneumonia. He was subsequently admitted and started on IV antibiotics, deep venous thrombosis prophylaxis. He is already on anticoagulation for history of PE. His initial labs showed a white count of 13 with an H&H of 11.1 and 35.9. His initial BUN and creatinine were 45 and 3.4. Initial glucose was 413. Cardiac enzymes were okay. INR was 2.52. Due to worsening renal function, a renal consultation was obtained. INR had also climbed to 3.56 and Coumadin was held. On the morning of the , he developed increasing chest pain, shortness breath and rapid response was called. He had elevation of his cardiac enzymes, and felt he had suffered a non-Q-wave myocardial infarction. He was moved to the unit where he was stabilized. He was seen in consultation by pulmonary and cardiology. A cardiac catheterization was considered, but never performed due to his poor renal function. He was already on a beta-sarah and aspirin was added to his Coumadin. He improved there. He admitted back to the floor on the . On the , he will be getting day 6 of IV antibiotics and he is adamant about leaving despite medical advice. His chest x-ray clinically has stabilized, but is still abnormal. He is not having any more chest pain and he is having no shortness of breath at this time. He is adamant about leaving despite recommendations that he stated to finish a full 7-day course of antibiotics and to monitor his renal function. His creatinine is actually improved to 2.9, which is probably not too far from his baseline. His INR is now subtherapeutic. He is agreeable to receiving his day 6 dose of ceftriaxone and he will receive that tonight and to be discharged. He is going be started back on his Coumadin at his previous dose. His only new medicines are going to be Levaquin 250 daily for 5 more days, plus will start a baby aspirin. See discharge MAR for the rest of his meds. He needs to have his protime rechecked in 3-4 days and he needs to see his primary care physician upon return to home. TRANSINT:[id number] Voice Confirmation ID: [id number] DOCUMENT ID: [id number] DISCHARGE SUMMARY REPORT [id number] BRAD CASANOVA MATTHEW DO at 1546 CC: [id number] DICTATION DATE: 03/08/17 1614 ENVELOPE STUFFER: 03/09/17 1254 DIS IN 03/08/17 [facility] [address] [place] [address]
[2017-03-10 10:11] LABS: UPE RAND - ALBUMIN 71.3 % (()); UPE RAND - ALPHA 1 GLOBULIN 4.6 % (()); UPE RAND - ALPHA 2 GLOBULIN 5.5 % (()); UPE RAND - BETA GLOBULIN 8.9 % (()); UPE RAND - GAMMA GLOBULIN 9.7 % (())
[2017-03-10 11:13] LABS: SPE - A/G RATIO 1.1 (0.7-1.7); SPE - ALBUMIN 2.9 g/dL (2.9-4.4); SPE - ALPHA-1 GLOBULIN 0.3 g/dL (0.0-0.4); SPE - ALPHA-2 GLOBULIN 0.8 g/dL (0.4-1.0); SPE - BETA GLOBULIN 0.7 g/dL (0.7-1.3); SPE - GAMMA GLOBULIN 0.8 g/dL (0.4-1.8); SPE - M-SPIKE Not Observed g/dL (Not Observed); SPE - TOTAL PROTEIN 5.5 g/dL (6.0-8.5)
== END 2017-03-08 20:05 | disposition home or self-care (01) | DRG 189 ==
LOC: D.CVICU 11:37 → D.ICU 11:37 → D.M2 11:37 → D.ICU 03-05 12:34 → D.CVICU 03-06 22:24 → D.M2 03-07 19:41
PROVIDERS: Internal Medicine Nephrology; Internal Medicine Pulmonary Disease; ADMIT Family Medicine
DX: J96.01 Acute respiratory failure with hypoxia (principal); J18.1 Lobar pneumonia, unspecified organism; I21.4 Non-ST elevation (NSTEMI) myocardial infarction; I50.21 Acute systolic (congestive) heart failure; I24.8 Other forms of acute ischemic heart disease; I13.0 Hypertensive heart and chronic kidney disease with heart failure and stage 1 through stage 4 chronic kidney disease, or unspecified chronic kidney disease; N18.4 Chronic kidney disease, stage 4 (severe); N17.9 Acute kidney failure, unspecified; K86.1 Other chronic pancreatitis; J44.0 Chronic obstructive pulmonary disease with (acute) lower respiratory infection; J44.1 Chronic obstructive pulmonary disease with (acute) exacerbation; R00.0 Tachycardia, unspecified; E11.22 Type 2 diabetes mellitus with diabetic chronic kidney disease; I25.10 Atherosclerotic heart disease of native coronary artery without angina pectoris; I08.1 Rheumatic disorders of both mitral and tricuspid valves; F10.21 Alcohol dependence, in remission; E11.40 Type 2 diabetes mellitus with diabetic neuropathy, unspecified; Z79.01 Long term (current) use of anticoagulants; Z86.711 Personal history of pulmonary embolism; Z85.72 Personal history of non-Hodgkin lymphomas; Z87.891 Personal history of nicotine dependence